=== PATIENT | male | born 1935 | race Caucasian/White ===

== ENCOUNTER 2022-10-07 13:29 | Observation (INO) | payer OTHER, MEDICARE ==
[~2022-10-07] VITALS: Ht 177.8 cm; Wt 68.6 kg
[~2022-10-07 13:29] MED LIST: BENICAR40 MG PO; DIOVAN160 MG PO; LASIX 40MG TABL40 MG PO; LASIX PO; LISINOPRIL20 MG PO; MYLAN PO; PRINIVIL40 MG PO; THEODUR 200MG PO; THEOPHYLLINE PO; VITAMIN D PO; VITAMIN D1000 IU PO
[2022-10-07 14:20] LABS: BASO # 0.1 K/mm3 (0.0-0.2); BASO % 0.8 % (0.0-2.0); EOS # 0.2 K/mm3 (0.0-0.7); EOS % 2.6 % (0.0-4.0); GRAN # 3.7 K/mm3 (1.4-6.5); GRAN % 57.8 % (42.2-75.2); HEMOGLOBIN 10.3 g/dl (13.5-18.0); LYMPH # 1.7 K/mm3 (1.2-3.4); LYMPH % 26.4 % (20.0-51.0); MEAN CELL VOLUME 96 fl (80.0-100.0); MEAN CORPUSCULAR HEMOGLOBIN 30 pg (27-31); MEAN CORPUSCULAR HGB CONC 32 g/dl (33.0-37.0); MEAN PLATELET VOLUME 9.7 fl (7.4-10.4); MONO # 0.8 K/mm3 (0.1-0.6); MONO % 12.1 % (1.7-9.3); PLATELET COUNT 267 K/mm3 (130-400); RED BLOOD COUNT 3.39 M/mm3 (4.20-5.60); REDCELL DISTRIBUTION WIDTH-CV 14.1 % (11.5-14.5)
[2022-10-07 14:25] LABS: HEMATOCRIT 32.5 % (42.0-52.0)
[2022-10-07 14:44] LABS: ALBUMIN 3.4 gm/dL (3.4-4.8); BILIRUBIN,TOTAL 0.3 mg/dL (0.2-1.2); CALCIUM 9.3 mg/dL (8.4-10.2); CREATININE, serum 1.93 mg/dL (0.72-1.25); TOTAL PROTEIN 6.9 gm/dL (6.2-8.1)
[2022-10-07 14:58] LABS: TROPONIN-I 0.05 ng/mL (0.00-0.033)
[2022-10-07] MEDS ORDERED: PRINZIDE 12.5 M1 TAB PO (15:35)
[2022-10-07] MEDS ORDERED: CALCIUM CITRAT200 M2 PO (15:35)
[2022-10-07] MEDS ORDERED: FLOMAX 0.40.4 MG/CAP PO (15:37)
[2022-10-07 16:44] VITALS: BP 137/75; PULSE 77; TEMP 97.7
[2022-10-07 19:20] VITALS: BP 119/63; PULSE 77; TEMP 97.9
--- NOTE | 2022-10-07 20:30 | NUR ---
Initial shift assessment done- Denies pain at this time- is wearing his back brace- sitting up in chair- has lower extremity edema, getting lasix IV with good output- understands that we need to measure thr amount of urine. Does have SCD,s ,not on at this time due to multiple trips to bathroom-- Does call for assist- using cane to walk- on fall risk- does not want our slippers- uses his own shoes, Tele on, Will be NPO after MN for stress test. Has fistula left FA- restriction band applied .
[2022-10-07 23:27] VITALS: BP 129/63; PULSE 80; TEMP 98.1
[2022-10-08] VITALS (8 sets, daily range): BP systolic 113–139; BP diastolic 60–75; PULSE 78–89; TEMP 97.7–98
--- NOTE | 2022-10-08 05:28 | NUR ---
Not much sleep last night- Up to bathroom every hour or so, Lasix effective as pt had 3900cc of urine out this shift. Pt NPO for stress test.
[2022-10-08 06:44] LABS: CALCIUM 8.9 mg/dL (8.4-10.2); CREATININE, serum 2.01 mg/dL (0.72-1.25); MAGNESIUM 1.9 mg/dL (1.6-2.6); POTASSIUM 4.3 mmol/L (3.5-4.5)
[2022-10-08 06:59] LABS: TROPONIN-I 0.081 ng/mL (0.00-0.033)
--- NOTE | 2022-10-08 09:33 | NUR ---
Initial visit; Patient thanked Employment Programs Analyst for looking in on him and offering Gods blessings and to keep him in her prayers.
--- NOTE | 2022-10-08 14:32 | NUR ---
SHREYAS met with the patient to discuss discharge plan. The patient lives alone in [place]. He reports independence with ADLs and has a cane and walker. He shares that he is getting a grab bar installed in his shower, so he is taking spongebaths right now. He states that he has home health services from [facility]. The patient's primary care provider is Allison Mcdaniel at the [facility] and he receives his medications from the [facility]. The patient has a DPOA-HC in EMR that designates a Latanya Shipps. The patient states that he has an updated DPOA-HC now that designates his brother, Sylvester Cox (ph#[phone]). Sylvester lives in [place]. The patient plans to return home and resume home health upon discharge. He states that he has a ride home. SHREYAS contacted and faxed updates to Gary at [facility]. *Discharge plan: home with home health*
[2022-10-08] MEDS ORDERED: PROTONIX 40MG T40 MG PO (14:56)
[2022-10-08] MEDS ORDERED: LASIX 40MG TABL40 MG PO (14:56)
== END 2022-10-08 16:04 | disposition home or self-care (01) ==
LOC: COL.ER 13:29 → MEDICAL 15:29
PROVIDERS: Emergency Medicine; ADMIT Internal Medicine
DX: M79.89 Other specified soft tissue disorders (principal); R60.0 Localized edema; R77.8 Other specified abnormalities of plasma proteins; I12.9 Hypertensive chronic kidney disease with stage 1 through stage 4 chronic kidney disease, or unspecified chronic kidney disease; I13.10 Hypertensive heart and chronic kidney disease without heart failure, with stage 1 through stage 4 chronic kidney disease, or unspecified chronic kidney disease; N18.30 Chronic kidney disease, stage 3 unspecified; D63.1 Anemia in chronic kidney disease; Z66 Do not resuscitate; E87.5 Hyperkalemia; K22.70 Barrett's esophagus without dysplasia; S32.019A Unspecified fracture of first lumbar vertebra, initial encounter for closed fracture; S32.039A Unspecified fracture of third lumbar vertebra, initial encounter for closed fracture; S32.029A Unspecified fracture of second lumbar vertebra, initial encounter for closed fracture; Z91.81 History of falling; Z79.899 Other long term (current) drug therapy
CPT/HCPCS: A9500; G0378; J1940; J2785